=== PATIENT | male | born 1990 | race Caucasian/White ===

== ENCOUNTER 2017-11-27 00:09 | Inpatient (IN) | payer MEDICAID ==
[~2017-11-27] VITALS: Ht 165.1 cm; Wt 88.9 kg
[~2017-11-27 00:09] MED LIST: BENZ1TAB10 PO; CITA20TA9 PO; LITH300C3 PO; OLAN15TA2 PO
[2017-11-27 03:13] VITALS: BP 138/73
[2017-11-27 08:24] VITALS: BP 134/70
[2017-11-27] MEDS ORDERED: ACETAMINOPHEN 325 MG TABLET PO PRN (09:45)
[2017-11-27] MEDS ORDERED: ONDANSETRON HCL 4 MG TABLET PO PRN (09:45)
[2017-11-27] MEDS ORDERED: CloNIDine HCL 0.1 MG TABLET PO PRN (09:45)
[2017-11-27] MEDS ORDERED: ALBUTEROL SULFATE HFA 90 MCG/PUFF 8 GM INHALER IH PRN (09:45)
[2017-11-27] MEDS ORDERED: BACITRACIN 28.4 GM OINTMENT TP PRN (09:45)
[2017-11-27] MEDS ORDERED: MAGNESIUM HYDROXIDE SUSPENSION 30 ML UDCUP PO PRN (09:45)
[2017-11-27] MEDS ORDERED: PETROLATUM,WHITE 71 GM JELLY TP PRN (09:45)
[2017-11-27] MEDS ORDERED: MAG HYDROX/AL HYDROX/SIMETH ES 30 ML SUSPENSION UDCUP PO PRN (09:45)
[2017-11-27] MEDS ORDERED: LOPERAMIDE HCL 2 MG CAPSULE PO PRN (09:45)
[2017-11-27] MEDS: LORazepam 1 MG TABLET PO PRN ×3 (10:15→20:44)
[2017-11-27 16:28] VITALS: BP 126/75
[2017-11-27] MEDS: OLANZapine 10 MG TABLET PO SCH (21:01)
[2017-11-28] MEDS: ZOLPIDEM TARTRATE 10 MG TABLET PO PRN ×2 (00:20→20:09)
[2017-11-28 02:56] VITALS: BP 125/74
[2017-11-28] MEDS: LORazepam 1 MG TABLET PO PRN ×3 (02:58→15:46)
[2017-11-28 08:12] VITALS: BP 124/73
[2017-11-28 08:28] LABS: BASOPHILS % (AUTO) 0.4 % (0.0-2.0); EOSINOPHILS % (AUTO) 4.1 % (1.0-6.0); HEMATOCRIT 48.8 % (41-53); HEMOGLOBIN 16.7 g/dL (13.5-17.5); LYMPHOCYTES # (AUTO) 1.7 K/uL (1.0-4.8); LYMPHOCYTES % (AUTO) 17.3 % (22.0-44.0); MEAN CORPUSCULAR HGB CONC 34.2 G/dL (31.0-37.0); MEAN CORPUSCULAR VOLUME 88 fL (80-100); MONOCYTES % (AUTO) 10.1 % (2.0-9.0); NEUTROPHILS # (AUTO) 6.8 K/uL (1.8-7.7); NEUTROPHILS % (AUTO) 68.1 % (40.0-70.0); PLATELET COUNT (AUTO) 235 K/uL (150-450); RED BLOOD CELL COUNT(AUTO) 5.55 MIL/uL (4.50-5.90); RED CELL DISTRIBUTION WIDTH 14.6 % (11.5-14.5)
[2017-11-28] MEDS: DIVALPROEX SODIUM 500 MG DR TABLET PO SCH ×2 (08:54→16:02)
[2017-11-28] MEDS: OMEGA-3/DHA/EPA/FISH OIL 1,000 MG CAPSULE PO SCH (08:54)
[2017-11-28] MEDS: LITHIUM CARBONATE 300 MG CAPSULE PO SCH ×2 (09:00→17:00)
[2017-11-28 09:31] LABS: ALANINE AMINOTRANSFERASE 37 U/L (12-78); ALBUMIN 3.5 g/dL (3.4-5.0); ALKALINE PHOSPHATASE 124 U/L (46-116); ANION GAP 7 mmol/L (8-16); ASPARTATE AMINOTRANSFERASE 19 U/L (15-37); BILIRUBIN,TOTAL 0.4 mg/dL (0.1-1.0); CALCIUM, TOTAL 8.8 mg/dL (8.8-10.5); CARBON DIOXIDE 27 mmol/L (22-29); CHLORIDE 104 mmol/L (98-107); CREATININE 0.81 mg/dL (0.60-1.30); FREE T4 (FREE THYROXINE) 0.87 ng/dL (0.76-1.46); GLOMERULAR FILTR. RATE CALC > 60 mL/min (>60); GLUCOSE,RANDOM 83 mg/dL (70-110); POTASSIUM 5.2 mmol/L (3.5-5.1); SODIUM SERUM 138 mmol/L (136-145); THYROID STIMULATING HORMONE 0.13 uIU/mL (0.36-3.74); TOTAL PROTEIN, SERUM 6.2 g/dL (6.4-8.2); UREA NITROGEN, BLOOD 17 mg/dL (7-18)
[2017-11-28 11:15] VITALS: BP 125/77
[2017-11-28] MEDS ORDERED: SODIUM POLYSTYRENE SULFONATE 15 GM/60 ML SUSPENSION BOTTLE PO ONE (13:00)
[2017-11-28 16:00] VITALS: BP 122/72
[2017-11-28] MEDS: BENZOCAINE/MENTHOL LOZENGE MM PRN (16:45)
[2017-11-28] MEDS: OLANZapine 10 MG TABLET PO SCH (20:09)
[2017-11-29 00:32] VITALS: BP 125/90
[2017-11-29] MEDS: LORazepam 1 MG TABLET PO PRN ×3 (00:33→16:06)
[2017-11-29] MEDS: OMEGA-3/DHA/EPA/FISH OIL 1,000 MG CAPSULE PO SCH (08:17)
[2017-11-29] MEDS: DIVALPROEX SODIUM 500 MG DR TABLET PO SCH ×2 (08:17→16:06)
[2017-11-29 08:22] VITALS: BP 122/86
[2017-11-29] MEDS ORDERED: DIVALPROEX SODIUM 500 MG DR TABLET PO SCH (09:00)
[2017-11-29 16:06] VITALS: BP 117/69
[2017-11-29] MEDS: IBUPROFEN 600 MG TABLET PO PRN (20:51)
[2017-11-29] MEDS: OLANZapine 10 MG TABLET PO SCH (20:51)
[2017-11-29 20:57] VITALS: BP 120/80
[2017-11-29] MEDS: ZOLPIDEM TARTRATE 10 MG TABLET PO PRN (21:27)
[2017-11-30 01:15] VITALS: BP 115/69
[2017-11-30] MEDS: LORazepam 1 MG TABLET PO PRN ×3 (01:36→16:05)
[2017-11-30 08:13] VITALS: BP 119/70
[2017-11-30] MEDS: DIVALPROEX SODIUM 500 MG DR TABLET PO SCH ×2 (08:34→16:05)
[2017-11-30] MEDS: OMEGA-3/DHA/EPA/FISH OIL 1,000 MG CAPSULE PO SCH (08:34)
[2017-11-30 16:00] VITALS: BP 116/62
[2017-11-30] MEDS: BENZOCAINE/MENTHOL LOZENGE MM PRN (17:51)
[2017-11-30 17:52] VITALS: BP 122/70
[2017-11-30] MEDS: IBUPROFEN 600 MG TABLET PO PRN (17:52)
[2017-11-30] MEDS: ZOLPIDEM TARTRATE 10 MG TABLET PO PRN (20:03)
[2017-11-30] MEDS: OLANZapine 10 MG TABLET PO SCH (20:03)
[2017-12-01 05:08] VITALS: BP 133/79
[2017-12-01] MEDS: DIVALPROEX SODIUM 500 MG DR TABLET PO SCH ×2 (08:25→16:48)
[2017-12-01] MEDS: OMEGA-3/DHA/EPA/FISH OIL 1,000 MG CAPSULE PO SCH (08:26)
[2017-12-01 09:08] VITALS: BP 124/68
[2017-12-01] MEDS: LORazepam 1 MG TABLET PO PRN ×2 (10:07→17:41)
[2017-12-01 16:52] VITALS: BP 124/84
[2017-12-01] MEDS: OLANZapine 10 MG TABLET PO SCH (20:24)
[2017-12-01] MEDS: ZOLPIDEM TARTRATE 10 MG TABLET PO PRN (20:24)
[2017-12-02 00:14] VITALS: BP 130/86
[2017-12-02] MEDS: LORazepam 1 MG TABLET PO PRN ×3 (00:24→17:45)
[2017-12-02 08:40] VITALS: BP 120/73
[2017-12-02] MEDS: DIVALPROEX SODIUM 500 MG DR TABLET PO SCH ×2 (09:22→16:34)
[2017-12-02] MEDS: OMEGA-3/DHA/EPA/FISH OIL 1,000 MG CAPSULE PO SCH (09:22)
[2017-12-02] MEDS ORDERED: OLAN10TA3 PO (12:08)
[2017-12-02] MEDS ORDERED: DIVA500T69 PO (12:08)
[2017-12-02] MEDS ORDERED: OMEG-135 PO (12:08)
[2017-12-02 17:54] VITALS: BP 127/83
[2017-12-02] MEDS ORDERED: NICOTINE 21 MG/24 HOUR PATCH TD ONE (18:45)
[2017-12-02] MEDS: OLANZapine 10 MG TABLET PO SCH (20:31)
[2017-12-02] MEDS: ZOLPIDEM TARTRATE 10 MG TABLET PO PRN (20:31)
[2017-12-03 00:53] VITALS: BP 121/86
[2017-12-03] MEDS: LORazepam 1 MG TABLET PO PRN (02:13)
[2017-12-03 08:14] VITALS: BP 124/76
[2017-12-03] MEDS: DIVALPROEX SODIUM 500 MG DR TABLET PO SCH (08:53)
[2017-12-03] MEDS: OMEGA-3/DHA/EPA/FISH OIL 1,000 MG CAPSULE PO SCH (08:53)
[2017-12-03] MEDS ORDERED: NICOTINE 21 MG/24 HOUR PATCH TD SCH (09:00)
[2017-12-03] MEDS ORDERED: DIVA500T35 PO (09:10)
[2017-12-03] MEDS ORDERED: OLAN10TA3 PO (09:10)
== END 2017-12-03 10:30 | disposition home or self-care (01) | DRG 750 ==
LOC: B2S 02:49 → EDSTATUS 02:57
PROVIDERS: ADMIT Psychiatry & Neurology Psychiatry; ATTEND Psychiatry & Neurology Psychiatry
DX: F25.9 Schizoaffective disorder, unspecified (principal); E87.5 Hyperkalemia; F15.10 Other stimulant abuse, uncomplicated; F17.200 Nicotine dependence, unspecified, uncomplicated; J45.909 Unspecified asthma, uncomplicated; K21.9 Gastro-esophageal reflux disease without esophagitis; K59.00 Constipation, unspecified; F12.90 Cannabis use, unspecified, uncomplicated
CPT/HCPCS: 84132; 84439; 84443; 99285

== ENCOUNTER 2021-10-18 19:55 | Outpatient (CLI) | payer OTHER ==
[~2021-10-18 19:55] MED LIST changes: -BENZ1TAB10 PO; -CITA20TA9 PO; +DIVA-112 PO; -LITH300C3 PO; +OLAN10TA74 PO; -OLAN15TA2 PO; +OMEG-108 PO
[2021-10-18] MEDS ORDERED: OLANZapine 5 MG TABLET PO ONE (21:00)
[2021-10-18] MEDS ORDERED: DIVALPROEX SODIUM 250 MG DR TABLET PO ONE (21:00)
[2021-10-18 21:05] VITALS: BP 161/111
[2021-10-18 21:26] VITALS: BP 161/111
== END 2021-10-18 21:08 | disposition home or self-care (01) ==
LOC: CSU 19:55
PROVIDERS: ATTEND Psychiatry & Neurology Psychiatry
DX: F25.0 Schizoaffective disorder, bipolar type (principal); F15.20 Other stimulant dependence, uncomplicated; F10.20 Alcohol dependence, uncomplicated; I10 Essential (primary) hypertension
CPT/HCPCS: 90792; Z7610

== ENCOUNTER 2022-10-28 16:26 | Inpatient (IN) | payer MEDICAID, OTHER ==
[~2022-10-28] VITALS: Ht 165.1 cm; Wt 89.8 kg
[~2022-10-28 16:26] MED LIST changes: -OMEG-108 PO; +OMEG-135 PO
[2022-10-28 21:05] LABS: BASOPHILS % (AUTO) 0.3 % (0.0-2.0); EOSINOPHILS % (AUTO) 2.8 % (1.0-6.0); HEMATOCRIT 47.9 % (41-53); HEMOGLOBIN 16.6 g/dL (13.5-17.5); LYMPHOCYTES # (AUTO) 2.5 K/uL (1.0-4.8); LYMPHOCYTES % (AUTO) 26.3 % (22.0-44.0); MEAN CORPUSCULAR HEMOGLOBIN 30.4 pg (26.0-34.0); MEAN CORPUSCULAR HGB CONC 34.7 G/dL (31.0-37.0); MEAN CORPUSCULAR VOLUME 88 fL (80-100); MONOCYTES # (AUTO) 0.8 K/uL (0.1-1.0); MONOCYTES % (AUTO) 8.9 % (2.0-9.0); NEUTROPHILS # (AUTO) 5.8 K/uL (1.8-7.7); NEUTROPHILS % (AUTO) 61.7 % (40.0-70.0); PLATELET COUNT (AUTO) 267 K/uL (150-450); RED BLOOD CELL COUNT(AUTO) 5.46 MIL/uL (4.50-5.90); RED CELL DISTRIBUTION WIDTH 12.8 % (11.5-14.5)
[2022-10-28 21:13] LABS: ANION GAP 3 mmol/L (8-16); CALCIUM, TOTAL 9.2 mg/dL (8.8-10.5); CARBON DIOXIDE 31 mmol/L (22-29); CHLORIDE 102 mmol/L (98-107); CREATININE 1.09 mg/dL (0.60-1.30); GLOMERULAR FILTR. RATE CALC > 60 mL/min (>60); GLUCOSE,RANDOM 95 mg/dL (70-110); POTASSIUM 4.2 mmol/L (3.5-5.1); SODIUM SERUM 136 mmol/L (136-145); UREA NITROGEN, BLOOD 11 mg/dL (7-18)
[2022-10-28 21:19] LABS: ALANINE AMINOTRANSFERASE 56 U/L (12-78); ALBUMIN 4.2 g/dL (3.4-5.0); ALKALINE PHOSPHATASE 141 U/L (46-116); ASPARTATE AMINOTRANSFERASE 31 U/L (15-37); BILIRUBIN,TOTAL 0.5 mg/dL (0.1-1.0); TOTAL PROTEIN, SERUM 7.1 g/dL (6.4-8.2)
[2022-10-28] MEDS ORDERED: LORazepam 2 MG TABLET PO PRN (21:45)
[2022-10-28 21:47] LABS: COVID AG,FIA SOURCE NASAL SWAB
[2022-10-28] MEDS: OLANZapine 5 MG RAPDIS TABLET PO PRN (23:30)
[2022-10-29] MEDS: ZOLPIDEM TARTRATE 10 MG TABLET PO PRN ×2 (00:52→23:18)
[2022-10-29 00:57] VITALS: BP 145/89
[2022-10-29] MEDS: OLANZapine 5 MG RAPDIS TABLET PO PRN (11:56)
[2022-10-29 19:21] LABS: APPEARANCE,URINE CLEAR (CLEAR); BILIRUBIN,URINE NEGATIVE (NEGATIVE); GLUCOSE, URINE (UA) NEGATIVE (NEGATIVE); KETONES,URINE NEGATIVE (NEGATIVE); LEUKOCYTE ESTERASE ,URINE MODERATE (NEGATIVE); NITRATE,URINE NEGATIVE (NEGATIVE); OCCULT BLOOD,URINE NEGATIVE (NEGATIVE); PROTEIN,URINE NEGATIVE (NEGATIVE); SPECIFIC GRAVITIY, URINE 1.011 (1.003-1.030); UROBILINOGEN,URINE <=1.0 mg/dL (<=1.0)
[2022-10-29 19:29] LABS: BACTERIA,URINE Rare /HPF (None Seen); RBC,URINE None Seen /HPF (0-2); SQUAMOUS EPITHELIAL CELL,UR Rare /LPF (None Seen)
[2022-10-29 19:30] LABS: AMPHET/METH SCREEN,URINE POSITIVE (NEGATIVE); BARBITURATE SCREEN, URINE NEGATIVE (NEGATIVE); BENZODIAZEPINES SCREEN,URINE NEGATIVE (NEGATIVE); CANNABINOID SCREEN,URINE NEGATIVE (NEGATIVE); COCAINE SCREEN,URINE NEGATIVE (NEGATIVE); METHADONE SCREEN, URINE NEGATIVE (NEGATIVE); OPIATE SCREEN,URINE NEGATIVE (NEGATIVE); PHENCYCLIDINE SCREEN,URINE NEGATIVE (NEGATIVE)
[2022-10-29 20:03] VITALS: BP 134/69
[2022-10-29] MEDS ORDERED: GuaiFENesin/D-METHORPHAN [SUGAR-FREE] 200-20MG/10 ML SYRUP UDCUP PO PRN (20:15)
[2022-10-29] MEDS ORDERED: HydrOXYzine PAMOATE 50 MG CAPSULE PO PRN (20:15)
[2022-10-29] MEDS ORDERED: MAGNESIUM HYDROXIDE SUSPENSION 30 ML UDCUP PO PRN (20:15)
[2022-10-29] MEDS ORDERED: PROMETHAZINE HCL 25 MG TABLET PO PRN (20:15)
[2022-10-29] MEDS ORDERED: TUBERCULIN, PURIFIED PROTEIN DERIVATIVE 5 TU/0.1 ML SYRINGE ID ONE (20:15)
[2022-10-29] MEDS ORDERED: ACETAMINOPHEN 325 MG TABLET PO PRN (20:15)
[2022-10-29] MEDS ORDERED: MAG HYDROX/AL HYDROX/SIMETH ES 30 ML SUSPENSION UDCUP PO PRN (20:15)
[2022-10-29] MEDS ORDERED: LOPERAMIDE HCL 2 MG CAPSULE PO PRN (20:15)
[2022-10-29] MEDS: OLANZapine 5 MG RAPDIS TABLET PO SCH (21:20)
[2022-10-29] MEDS: DIVALPROEX SODIUM 500 MG ER TABLET PO SCH (21:20)
[2022-10-29] MEDS: MELATONIN 5 MG TABLET PO SCH (21:21)
[2022-10-30] MEDS: FOLIC ACID 1 MG TABLET PO SCH (08:24)
[2022-10-30] MEDS: NALTREXONE HCL 50 MG TABLET PO SCH (08:24)
[2022-10-30] MEDS: MULTIVITAMINS WITH MINERALS, THERAPEUTIC TABLET PO SCH (08:24)
[2022-10-30] MEDS: OMEGA-3/DHA/EPA/FISH OIL 1,000 MG CAPSULE PO SCH (08:24)
[2022-10-30] MEDS: THIAMINE 100 MG TABLET PO SCH ×2 (08:24→16:22)
[2022-10-30 08:47] VITALS: BP 141/92
[2022-10-30 09:08] LABS: HEMOGLOBIN A1C 4.9 % (3.8-5.6)
[2022-10-30 09:51] LABS: CHOL/HDL RATIO 4.8 (4.2-7.3); FREE T4 (FREE THYROXINE) 1.11 ng/dL (0.76-1.46); THYROID STIMULATING HORMONE 0.37 uIU/mL (0.36-3.74)
[2022-10-30 17:19] VITALS: BP 145/89
[2022-10-30 20:01] VITALS: BP 138/72
[2022-10-30 20:02] VITALS: BP 138/72
[2022-10-30] MEDS: MELATONIN 5 MG TABLET PO SCH (20:41)
[2022-10-30] MEDS: DIVALPROEX SODIUM 500 MG ER TABLET PO SCH (20:41)
[2022-10-30] MEDS: OLANZapine 5 MG RAPDIS TABLET PO SCH (20:42)
[2022-10-31] MEDS: FOLIC ACID 1 MG TABLET PO SCH (08:16)
[2022-10-31] MEDS: NALTREXONE HCL 50 MG TABLET PO SCH (08:16)
[2022-10-31] MEDS: OMEGA-3/DHA/EPA/FISH OIL 1,000 MG CAPSULE PO SCH (08:16)
[2022-10-31] MEDS: MULTIVITAMINS WITH MINERALS, THERAPEUTIC TABLET PO SCH (08:16)
[2022-10-31] MEDS: THIAMINE 100 MG TABLET PO SCH ×2 (08:16→16:14)
[2022-10-31 16:17] VITALS: BP 150/87
[2022-10-31] MEDS: MELATONIN 5 MG TABLET PO SCH (21:01)
[2022-10-31] MEDS: OLANZapine 10 MG RAPDIS TABLET PO SCH (21:01)
[2022-10-31] MEDS: DIVALPROEX SODIUM 500 MG ER TABLET PO SCH (21:01)
[2022-11-01] MEDS: THIAMINE 100 MG TABLET PO SCH ×2 (08:03→16:21)
[2022-11-01] MEDS: FOLIC ACID 1 MG TABLET PO SCH (08:04)
[2022-11-01] MEDS: OMEGA-3/DHA/EPA/FISH OIL 1,000 MG CAPSULE PO SCH (08:04)
[2022-11-01] MEDS: NALTREXONE HCL 50 MG TABLET PO SCH (08:04)
[2022-11-01] MEDS: MULTIVITAMINS WITH MINERALS, THERAPEUTIC TABLET PO SCH (08:04)
[2022-11-01 08:06] VITALS: BP 149/83
[2022-11-01 16:01] VITALS: BP 150/8
[2022-11-01] MEDS: MELATONIN 5 MG TABLET PO SCH (20:16)
[2022-11-01] MEDS: DIVALPROEX SODIUM 500 MG ER TABLET PO SCH (20:16)
[2022-11-01] MEDS: OLANZapine 10 MG RAPDIS TABLET PO SCH (20:18)
[2022-11-02] MEDS: OMEGA-3/DHA/EPA/FISH OIL 1,000 MG CAPSULE PO SCH (07:54)
[2022-11-02] MEDS: THIAMINE 100 MG TABLET PO SCH ×2 (07:54→16:37)
[2022-11-02] MEDS: MULTIVITAMINS WITH MINERALS, THERAPEUTIC TABLET PO SCH (07:54)
[2022-11-02] MEDS: FOLIC ACID 1 MG TABLET PO SCH (07:54)
[2022-11-02] MEDS: NALTREXONE HCL 50 MG TABLET PO SCH (07:55)
[2022-11-02 09:45] VITALS: BP 156/101
[2022-11-02 16:10] VITALS: BP 140/81
[2022-11-02] MEDS: MELATONIN 5 MG TABLET PO SCH (21:12)
[2022-11-02] MEDS: OLANZapine 10 MG RAPDIS TABLET PO SCH (21:12)
[2022-11-02] MEDS: DIVALPROEX SODIUM 500 MG ER TABLET PO SCH (21:12)
[2022-11-03] MEDS: OMEGA-3/DHA/EPA/FISH OIL 1,000 MG CAPSULE PO SCH (08:40)
[2022-11-03] MEDS: THIAMINE 100 MG TABLET PO SCH ×2 (08:40→16:36)
[2022-11-03] MEDS: FOLIC ACID 1 MG TABLET PO SCH (08:40)
[2022-11-03] MEDS: NALTREXONE HCL 50 MG TABLET PO SCH (08:41)
[2022-11-03] MEDS: MULTIVITAMINS WITH MINERALS, THERAPEUTIC TABLET PO SCH (08:41)
[2022-11-03 09:00] VITALS: BP 149/70
[2022-11-03 17:31] VITALS: BP 164/85
[2022-11-03] MEDS ORDERED: CloNIDine HCL 0.1 MG TABLET PO PRN (20:00)
[2022-11-03] MEDS: DIVALPROEX SODIUM 500 MG ER TABLET PO SCH (20:21)
[2022-11-03] MEDS: MELATONIN 5 MG TABLET PO SCH (20:22)
[2022-11-03] MEDS: OLANZapine 10 MG RAPDIS TABLET PO SCH (20:22)
[2022-11-04 02:36] VITALS: BP 141/88
[2022-11-04 08:39] VITALS: BP 143/80
[2022-11-04] MEDS: FOLIC ACID 1 MG TABLET PO SCH (08:50)
[2022-11-04] MEDS: AmLODIPine BESYLATE 2.5 MG TABLET PO SCH (08:50)
[2022-11-04] MEDS: MULTIVITAMINS WITH MINERALS, THERAPEUTIC TABLET PO SCH (08:50)
[2022-11-04] MEDS: THIAMINE 100 MG TABLET PO SCH ×2 (08:50→16:28)
[2022-11-04] MEDS: NALTREXONE HCL 50 MG TABLET PO SCH (08:51)
[2022-11-04] MEDS: OMEGA-3/DHA/EPA/FISH OIL 1,000 MG CAPSULE PO SCH (08:51)
[2022-11-04 16:14] VITALS: BP 131/81
[2022-11-04] MEDS: MELATONIN 5 MG TABLET PO SCH (20:22)
[2022-11-04] MEDS: OLANZapine 10 MG RAPDIS TABLET PO SCH (20:22)
[2022-11-04] MEDS: DIVALPROEX SODIUM 500 MG ER TABLET PO SCH (20:22)
[2022-11-04 20:36] VITALS: BP 135/74
[2022-11-05 08:40] LABS: COVID AG,FIA SOURCE NASAL SWAB
[2022-11-05] MEDS: THIAMINE 100 MG TABLET PO SCH ×2 (08:43→16:09)
[2022-11-05] MEDS: OMEGA-3/DHA/EPA/FISH OIL 1,000 MG CAPSULE PO SCH (08:43)
[2022-11-05] MEDS: FOLIC ACID 1 MG TABLET PO SCH (08:43)
[2022-11-05] MEDS: AmLODIPine BESYLATE 2.5 MG TABLET PO SCH (08:44)
[2022-11-05] MEDS: NALTREXONE HCL 50 MG TABLET PO SCH (08:44)
[2022-11-05] MEDS: MULTIVITAMINS WITH MINERALS, THERAPEUTIC TABLET PO SCH (08:44)
[2022-11-05 09:47] VITALS: BP 162/94
[2022-11-05 17:07] VITALS: BP 135/75
[2022-11-05] MEDS ORDERED: ESZOPICLONE 3 MG TABLET PO PRN (17:45)
[2022-11-05] MEDS ORDERED: GABAPENTIN 300 MG CAPSULE PO PRN (17:45)
[2022-11-05] MEDS: MELATONIN 5 MG TABLET PO SCH (21:01)
[2022-11-05] MEDS: DIVALPROEX SODIUM 500 MG ER TABLET PO SCH (21:01)
[2022-11-05] MEDS: OLANZapine 10 MG RAPDIS TABLET PO SCH (21:01)
[2022-11-05 21:08] VITALS: BP 145/86
[2022-11-06] MEDS: MULTIVITAMINS WITH MINERALS, THERAPEUTIC TABLET PO SCH (08:51)
[2022-11-06] MEDS: AmLODIPine BESYLATE 2.5 MG TABLET PO SCH (08:51)
[2022-11-06] MEDS: FOLIC ACID 1 MG TABLET PO SCH (08:51)
[2022-11-06] MEDS: THIAMINE 100 MG TABLET PO SCH (08:51)
[2022-11-06] MEDS: OMEGA-3/DHA/EPA/FISH OIL 1,000 MG CAPSULE PO SCH (08:51)
[2022-11-06] MEDS: NALTREXONE HCL 50 MG TABLET PO SCH (08:52)
[2022-11-06] MEDS ORDERED: BuPROPion HCL XL 150 MG ER TABLET PO SCH (09:00)
[2022-11-06] MEDS ORDERED: MELA5TAB40 PO (13:24)
[2022-11-06] MEDS ORDERED: NALT50TA PO (13:24)
[2022-11-06] MEDS ORDERED: OLAN10TA26 PO (13:24)
[2022-11-06] MEDS ORDERED: OMEG-135 PO (13:24)
[2022-11-06] MEDS ORDERED: BUPR-49 PO (13:24)
[2022-11-06] MEDS ORDERED: DIVA500T69 PO (13:24)
[2022-11-06] MEDS ORDERED: AMLO2.5T96 PO (13:30)
== END 2022-11-06 18:51 | disposition home or self-care (01) | DRG 750 ==
LOC: EMS 16:27 → 3EC 23:00
PROVIDERS: ADMIT Psychiatry & Neurology Psychiatry; ATTEND Psychiatry & Neurology Psychiatry
DX: F25.0 Schizoaffective disorder, bipolar type (principal); R45.851 Suicidal ideations; Z91.14 Patient's other noncompliance with medication regimen; I10 Essential (primary) hypertension; J44.9 Chronic obstructive pulmonary disease, unspecified; F17.200 Nicotine dependence, unspecified, uncomplicated; E66.9 Obesity, unspecified; F06.30 Mood disorder due to known physiological condition, unspecified; Z20.822 Contact with and (suspected) exposure to COVID-19; Z55.9 Problems related to education and literacy, unspecified; Z59.6 Low income; Z63.9 Problem related to primary support group, unspecified; Z65.3 Problems related to other legal circumstances; Z88.8 Allergy status to other drugs, medicaments and biological substances; Z91.199 Patient's noncompliance with other medical treatment and regimen due to unspecified reason; Z59.00 Homelessness unspecified; Z68.32 Body mass index [BMI] 32.0-32.9, adult
CPT/HCPCS: 80053; 80061; 80164; 80307; 81001; 83036; 84439; 84443; 85025; 86592; 87086; 87186; 99285; G0480; Q9967